=== PATIENT | female | born 1935 | race Caucasian/White ===

== ENCOUNTER → 2019-12-19 | Outpatient (CLI) | payer OTHER ==
[~2019-12-19] MED LIST: AMITRIPTYLINE H25 M2 PO; AMITRIPTYLINE H50 M2 PO; ATENOLOL 50 MG50 M1 PO; CO Q-1010 MG PO; CO-ENZYME Q-1010 MG PO; COMBIPATCH 0.01 EAC1 TD; COMPAZINE10 M1 PO; CRESTOR5 MG PO; FLONASE NS; FOSAMAX 70 MG T70 M1 PO; HYCET 7.5 MG-3473 ML PO; HYDROCODONE-APA1 TA1 PO; LORTAB PO; MAGNESIUM OXID200 MG PO; MUCINEX600 MG PO; MULTIVITAMINS PO; OMEGA-31000 MG PO; ONDANSETRON HCL4 M2 PO; OS-CAL 500+D C1 EACH PO; PREDNISONE 5 MG5 M1 PO; PROBIOTIC1 EAC1 PO; TUMS PO; VITAMIN D1000 UNI1 PO; VITAMIN E400 UNIT PO
== END ==
LOC: SJCVC 11:48
PROVIDERS: ATTEND Internal Medicine Cardiovascular Disease
DX: I48.0 Paroxysmal atrial fibrillation (principal); R00.1 Bradycardia, unspecified; I45.10 Unspecified right bundle-branch block; I10 Essential (primary) hypertension; E78.00 Pure hypercholesterolemia, unspecified; I65.23 Occlusion and stenosis of bilateral carotid arteries; Z79.899 Other long term (current) drug therapy

== ENCOUNTER → 2020-08-29 | Outpatient (CLI) | payer OTHER | LOC: SJCVCIMAG 09:09 | PROVIDERS: ATTEND Internal Medicine Cardiovascular Disease | DX: I08.8 Other rheumatic multiple valve diseases (principal); I11.9 Hypertensive heart disease without heart failure; I48.0 Paroxysmal atrial fibrillation; E78.00 Pure hypercholesterolemia, unspecified; I77.9 Disorder of arteries and arterioles, unspecified; I65.23 Occlusion and stenosis of bilateral carotid arteries; D68.59 Other primary thrombophilia; E55.9 Vitamin D deficiency, unspecified; Z88.0 Allergy status to penicillin; Z79.899 Other long term (current) drug therapy ==